=== PATIENT | male | born 1990 | race Caucasian/White ===

== ENCOUNTER 2017-02-08 08:11 | Emergency (ER) | payer OTHER, SELFPAY ==
[2017-02-08 08:43] LABS: #Basophils 0.1 thou/uL (0.0-0.2); #Eosinphils 0.3 thou/uL (0.0-0.7); #Lymphocytes 2.4 thou/uL (1.20-3.40); #Monocytes 0.6 thou/uL (0.11-0.59); #Neutrophils 3.9 thou/uL (1.40-6.50); %Basophils 0.8 % (0.0-1.0); %Eosinophils 4.2 % (0.0-10.0); %Lymphocytes 33.1 % (21.0-51.0); %Monocytes 8.3 % (0.0-10.0); Bilirubin Negative (Negative); Blood, Urine Large (Negative); Glucose, Urine (Dipstick) Negative (Negative); Hematocrit 42.9 % (42.0-52.0); Ketone, Urine Negative (Negative); Mean Platelet Volume 7.8 fL (7.4-10.4); Nitrite Negative (Negative); Protein, Urine (Dipstick) Negative (Neg-Trace); Red Blood Cell (RBC) Count 4.89 mill/uL (4.70-6.10); White Blood Cell (WBC) Count 7.3 thou/uL (4.8-10.8)
[2017-02-08 08:44] LABS: Bacteria/HPF None Seen HPF (None Seen); Hyaline Casts/LPF 0-3 HYALINE CAST LPF (0-3 Hyaline); RBC/HPF GREATER THAN 50-TNTC HPF (0-3); Squamous Epithelial None Seen HPF (0-3); WBC/HPF 0-3 HPF (0-3)
[2017-02-08 09:09] LABS: ALT (SGPT) 17 U/L (8-55); AST (SGOT) 55 U/L (5-34); Alkaline Phosphatase 59 U/L (40-150); Anion Gap 12 mmol/L (10-20); BUN (Urea Nitrogen) 13 mg/dL (8.9-20.6); Calc. Creatinine Clearance 0 mL/min (70-130); Calcium 9.9 mg/dL (7.8-10.44); Carbon Dioxide 26 mmol/L (22-29); Chloride 104 mmol/L (98-107); Estimated GFR-MDRD 88; Globulin 3.3 g/dL (2.4-3.5); Lipase 55 U/L (8-78); Protein, Total 7.8 g/dL (6.0-8.3)
[2017-02-08] MEDS ORDERED: Ketorolac Tromethamine 30 MG/ML VIAL ONE (09:42)
== END 2017-02-08 10:40 | disposition home or self-care (01) ==
LOC: ERS 08:11
DX: R10.9 Unspecified abdominal pain (principal); R31.9 Hematuria, unspecified; Z87.891 Personal history of nicotine dependence
CPT/HCPCS: 80053; 81003; 81015; 83690; 85025; 96361; 96374; J1885

== ENCOUNTER 2017-10-30 01:33 | Emergency (ER) | payer BC, SELFPAY ==
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
== END 2017-10-30 02:21 | disposition home or self-care (01) ==
LOC: ERS 01:33
DX: S43.004A Unspecified dislocation of right shoulder joint, initial encounter (principal); W06.XXXA Fall from bed, initial encounter
CPT/HCPCS: 23650

== ENCOUNTER 2018-06-17 03:36 | Observation (INO) | payer BC, SELFPAY ==
[2018-06-17] MEDS ORDERED: Adacel (T-DAP) 0.5 ML SYRINGE ONE (03:54)
[2018-06-17] MEDS ORDERED: HYDROcodone/Acetaminophen 5/325 mg Tablet ONE (04:31)
[2018-06-17 05:29] LABS: #Lymphocytes 1.9 thou/uL (1.20-3.40); #Monocytes 0.7 thou/uL (0.11-0.59); #Neutrophils 11.2 thou/uL (1.40-6.50); %Basophils 0.3 % (0.0-1.0); %Eosinophils 0.3 % (0.0-10.0); %Lymphocytes 13.5 % (21.0-51.0); %Monocytes 5.3 % (0.0-10.0); %Neutrophils 80.6 % (42.0-75.0); Hemoglobin 14.3 g/dL (14.0-18.0); Mean Corpuscular HGB CONC 34.1 g/dL (32.0-36.0); Mean Corpuscular Hemoglobin 30.1 pg (27.0-31.0); Mean Corpuscular Volume 88.3 fL (78.0-98.0); Mean Platelet Volume 7.8 fL (7.4-10.4); Platelet Count 274 thou/uL (130-400); RBC Distribution Width 11.5 % (11.5-14.5); Red Blood Cell (RBC) Count 4.76 mill/uL (4.70-6.10); White Blood Cell (WBC) Count 13.9 thou/uL (4.8-10.8)
[2018-06-17] MEDS ORDERED: Clindamycin/D5W 900 mg/50 ml Premix Bag ONE ×2 (05:48→13:57)
[2018-06-17 05:53] LABS: ALT (SGPT) 16 U/L (8-55); AST (SGOT) 49 U/L (5-34); Albumin 4.5 g/dL (3.5-5.0); Alkaline Phosphatase 85 U/L (40-150); Anion Gap 16 mmol/L (10-20); BUN (Urea Nitrogen) 7 mg/dL (8.9-20.6); Bilirubin, Total 0.6 mg/dL (0.2-1.2); Calc. Creatinine Clearance 0 mL/min (70-130); Calcium 9.7 mg/dL (7.8-10.44); Carbon Dioxide 25 mmol/L (22-29); Chloride 101 mmol/L (98-107); Estimated GFR-MDRD Greater than 90; Globulin 3.4 g/dL (2.4-3.5); Glucose 112 mg/dL (70-105); Potassium 3.7 mmol/L (3.5-5.1); Protein, Total 7.9 g/dL (6.0-8.3); Sodium 138 mmol/L (136-145)
[2018-06-17] MEDS ORDERED: Dextrose 5% in Water 1,000 ML IV PRN (06:03)
[2018-06-17] MEDS ORDERED: hydrALAZINE 20 MG/ML VIAL SLOW IVP PRN (06:03)
[2018-06-17] MEDS ORDERED: Ondansetron PF 4 MG/2 ML Vial IVP PRN (06:03)
[2018-06-17] MEDS ORDERED: Dextrose 50% Abboject 50 ML SYRINGE SLOW IVP PRN (06:03)
[2018-06-17] MEDS ORDERED: Ketorolac Tromethamine 30 MG/ML VIAL IVP SCH (06:45)
[2018-06-17] MEDS ORDERED: Morphine 4 MG/ML VIAL SLOW IVP PRN (06:45)
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
[2018-06-17 07:29] VITALS: BMI 24.6
[2018-06-17] MEDS: Morphine 4 MG/ML VIAL SLOW IVP PRN (07:46)
[2018-06-17] MEDS: Sodium Chloride 0.9% 1,000 ML IV SCH ×2 (07:46→18:15)
[2018-06-17] MEDS: Famotidine/PF 20 mg/2ml Vial SLOW IVP SCH ×2 (07:46→21:08)
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
[2018-06-17] MEDS ORDERED: Fentanyl 100 MCG/2 ML VIAL ONE ×2 (12:34→12:48)
[2018-06-17] MEDS ORDERED: Midazolam HCl 2 mg/2 ml Vial ONE (12:48)
[2018-06-17] MEDS ORDERED: Chlorhexidine Gluconate 15 ML UDCUP SSP ONE (12:56)
[2018-06-17] MEDS ORDERED: Lidocaine 1% w/Epinephrine 1:100K 20 ML VIAL ONE (12:56)
[2018-06-17] MEDS ORDERED: Hydrocortisone 1% Cream 30 GM TUBE ONE (12:56)
[2018-06-17] MEDS ORDERED: Bupivacaine HCl 0.5%/Epinephrine 1:200,000/PF 30 ml Vial ONE (12:56)
[2018-06-17] MEDS ORDERED: Oxymetazoline HCl 0.05% ( 15 ML ) ONE (13:37)
[2018-06-17] MEDS ORDERED: PROPOFOL 200 MG/20 ML VIAL ONE (13:57)
[2018-06-17] MEDS ORDERED: Ondansetron PF 4 MG/2 ML Vial ONE (13:57)
[2018-06-17] MEDS ORDERED: Glycopyrrolate 0.2 MG/ML 5 ML SYRINGE ONE (13:57)
[2018-06-17] MEDS ORDERED: Dexamethasone 20 MG/5 ML VIAL ONE (13:57)
[2018-06-17] MEDS ORDERED: Lidocaine 1% PF 5 ML VIAL ONE (13:57)
[2018-06-17] MEDS ORDERED: Rocuronium Bromide 10 MG/ML (10ML VIAL) ONE (13:57)
[2018-06-17] MEDS: Acetaminophen 1,000 MG in Premix Bag 1 BAG IVPB SCH ×3 (14:15→23:06)
[2018-06-17] MEDS: Ketorolac Tromethamine 15 MG/ML VIAL IVP SCH ×2 (14:15→18:54)
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
[2018-06-17] MEDS ORDERED: Promethazine HCl 25 MG/ML VIAL SLOW IVP PRN (15:45)
[2018-06-17] MEDS ORDERED: Promethazine HCl 25 MG/ML VIAL IM PRN (15:45)
[2018-06-17] MEDS ORDERED: Ondansetron HCl/PF 4 MG/2 ML Vial IVP PRN (15:45)
[2018-06-17] MEDS ORDERED: Meperidine HCl/PF 25 MG/ML VIAL ONE (16:02)
[2018-06-17] MEDS: Ketorolac Tromethamine 30 MG/ML VIAL IVP SCH ×2 (18:25→23:05)
[2018-06-17] MEDS: Senokot S 8.6-50 MG TAB PO SCH (21:08)
[2018-06-17] MEDS: Chlorhexidine Gluconate 15 ML UDCUP SSP SCH (21:08)
[2018-06-17] MEDS: Clindamycin/D5W 900 MG in Premix Bag 1 BAG IVPB SCH (21:11)
[2018-06-18] MEDS: Morphine 4 MG/ML VIAL SLOW IVP PRN (02:58)
[2018-06-18] MEDS: Sodium Chloride 0.9% 1,000 ML IV SCH (03:10)
[2018-06-18 04:31] LABS: #Lymphocytes 0.9 thou/uL (1.20-3.40); #Monocytes 0.8 thou/uL (0.11-0.59); #Neutrophils 13.6 thou/uL (1.40-6.50); %Eosinophils 0.1 % (0.0-10.0); %Lymphocytes 5.7 % (21.0-51.0); %Monocytes 4.9 % (0.0-10.0); %Neutrophils 89.3 % (42.0-75.0); Hemoglobin 12.9 g/dL (14.0-18.0); Mean Corpuscular HGB CONC 33.6 g/dL (32.0-36.0); Mean Corpuscular Hemoglobin 30.4 pg (27.0-31.0); Mean Corpuscular Volume 90.5 fL (78.0-98.0); Mean Platelet Volume 8.3 fL (7.4-10.4); Platelet Count 249 thou/uL (130-400); RBC Distribution Width 11.5 % (11.5-14.5); Red Blood Cell (RBC) Count 4.26 mill/uL (4.70-6.10); White Blood Cell (WBC) Count 15.2 thou/uL (4.8-10.8)
[2018-06-18 04:52] LABS: Anion Gap 10 mmol/L (10-20); BUN (Urea Nitrogen) 9 mg/dL (8.9-20.6); Calc. Creatinine Clearance 128 mL/min (70-130); Carbon Dioxide 29 mmol/L (22-29); Chloride 102 mmol/L (98-107); Estimated GFR-MDRD Greater than 90; Glucose 151 mg/dL (70-105); Potassium 4.4 mmol/L (3.5-5.1); Sodium 137 mmol/L (136-145)
[2018-06-18] MEDS: Clindamycin/D5W 900 MG in Premix Bag 1 BAG IVPB SCH (06:36)
[2018-06-18] MEDS: Acetaminophen 1,000 MG in Premix Bag 1 BAG IVPB SCH (06:36)
[2018-06-18] MEDS: Ketorolac Tromethamine 30 MG/ML VIAL IVP SCH (06:37)
[2018-06-18 07:55] VITALS: BP 91/45; TEMP 98
[2018-06-18] MEDS: Famotidine/PF 20 mg/2ml Vial SLOW IVP SCH (08:49)
[2018-06-18] MEDS: Chlorhexidine Gluconate 15 ML UDCUP SSP SCH (08:49)
[2018-06-18] MEDS: Senokot S 8.6-50 MG TAB PO SCH (08:49)
[2018-06-18] MEDS ORDERED: Polyethylene Glycol 3350 17 GM Packet PO SCH (09:00)
--- NOTE | 2018-06-18 10:11 | RAD ---
FRONTAL VIEW CHEST: Date: 06/18/18 INDICATION: Hypoxia. FINDINGS: There is abnormal patchy right perihilar opacity with adjacent interstitial reticulonodularity. Left lung is grossly clear. The cardiac silhouette is accentuated by portable technique. There is mild pro minence of the central pulmonary vasculature. Elevation of right hemidiaphragm. No acute osseous abnormality. IMPRESSION: Patchy right perihilar opacity which may relate to a perihilar pneumonia. There is surrounding inters titial reticulonodularity which may relate to atypical infectious process versus edema given a promin ent sized cardiac silhouette and prominence of the central pulmonary vasculature. Recommend clinical correlation, as well as imaging follow-up, to confirm expected resolution of findings subsequent to c ompletion of treatment regimen. MARGARETH Buenrostro
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
== END 2018-06-18 11:20 | disposition home or self-care (01) ==
LOC: ERS 03:36 → SURG B 05:12
PROVIDERS: ADMIT Surgery; ATTEND Surgery
PROC: 0NSTXZZ Reposition Right Mandible, External Approach (ICD-10-PCS; principal; 2018-06-18)
DX: S02.601A Fracture of unspecified part of body of right mandible, initial encounter for closed fracture (principal); S00.83XA Contusion of other part of head, initial encounter; S01.112A Laceration without foreign body of left eyelid and periocular area, initial encounter; G89.11 Acute pain due to trauma; S09.90XA Unspecified injury of head, initial encounter; Z79.2 Long term (current) use of antibiotics; Y04.2XXA Assault by strike against or bumped into by another person, initial encounter
CPT/HCPCS: 36415; 70450; 70486; 71045; 80048; 80053; 85025; 90471; 90715; 94640; 96361; 96365; 96374; 96375; 96376; G0378; J0131; J0670; J1100; J1885; J2001; J2175; J2250; J2270; J2405; J2704; J3010; J3490; J7620; S0028